=== PATIENT | female | born 2000 | race Caucasian/White ===

== ENCOUNTER 2023-05-12 11:20 | Emergency (ER) | payer BC ==
[2023-05-12 11:39] VITALS: BP 119/95; PULSE 88; RESP 18; TEMP 97.5; BMI 22.8
[2023-05-12 12:16] LABS: HCG,QUALITATIVE URINE Negative
[2023-05-12 12:42] LABS: EPITHELIAL CELLS 0-5 /hpf
== END 2023-05-12 12:34 | disposition home or self-care (01) ==
LOC: FER 11:20
DX: R30.0 Dysuria (principal); R35.0 Frequency of micturition; R39.15 Urgency of urination; N39.0 Urinary tract infection, site not specified
CPT/HCPCS: 81003; 81015; 84703; 87086; 99283-25